=== PATIENT | female | born 1990 | race Caucasian/White ===

== ENCOUNTER 2021-02-04 09:13 | Emergency (ER) | payer OTHER, SELFPAY ==
[2021-02-04 09:29] VITALS: BP 118/89; PULSE 91; RESP 16; TEMP 36.4; O2SAT 100
--- NOTE | 2021-02-04 10:03 | ED.URI ---
HPI - URI/Sore Throat General Chief Complaint: Upper Respiratory Infection Stated Complaint: sinus infection and pink eye Time Seen by Provider: 02/04/21 09:45 Source: patient and RN notes reviewed Mode of arrival: ambulatory Limitations: no limitations History of Present Illness HPI Narrative: Patient presents today with a 4-day history of occasional cough, postnasal drip, rhinorrhea, right ear pressure with decreased hearing, sinus pressure, sneezing, right eye redness and crusting. Patient denies any purulent drainage and does report watery drainage throughout the day. Denies fever or sore throat. Denies shortness of breath. No history of asthma or COPD. She is a non-smoker. She has been taking Mucinex and a decongestant. MD elicited complaint: rhinorrhea and nasal congestion Related Data Home Medications Medication Instructions Recorded Confirmed norgestimate-ethinyl estradiol tablet PO DAILY 02/04/21 [Tri-Sprintec (28)] Allergies Allergy/AdvReac Type Severity Reaction Status Date / Time amoxicillin Allergy hives Verified 02/04/21 09:47 Review of Systems Review of Systems: Narrative: CONSTITUTIONAL: Denies body aches, fever, chills, or sweats. EYES: Denies visual changes. + Right eye redness and crusting ENT: Denies sore throat, or otalgia.+ Rhinorrhea, nasal congestion, sinus pressure, sneezing, postnasal drip, right ear pressure with decreased hearing CARDIOVASCULAR: Denies chest pain, palpitations, or edema. RESPIRATORY: Denies dyspnea. + Occasional cough GASTROINTESTINAL: Denies abdominal pain, nausea, vomiting, or diarrhea. GENITOURINARY: Denies dysuria or hematuria. SKIN: Denies rash, itching, or wounds. MUSCULOSKELETAL: Denies back pain, joint pain, or myalgia. NEUROLOGIC: Denies headache, numbness, tingling, or weakness. PSYCH: Denies depression or anxiety. [facility] Social History Social History (Updated 02/04/21 @ 10:12 by Debora Good, DESKTOP MANAGER, ) Smoking status: Never smoker Comments At time of signature, I have reviewed and agree with nursing past medical, surgical, social and family history unless otherwise noted. Please see nursing chart for further information. There is no relevant family history pertinent to the presenting complaint Exam Narrative: Exam Narrative: GENERAL: Well-appearing, well-nourished, and in no acute distress. HEAD: Normocephalic, atraumatic. EYES: EOMI. No redness or drainage. Conjunctivae normal. ENT: Mucous membranes pink and moist. Nares congested. No rhinorrhea. Bilateral erythematous and edematous nasal turbinates. Left TM normal. Right TM slightly erythematous and mildly bulging with clear fluid. Throat normal. Uvula midline. NECK: Normal AROM. Supple. No lymphadenopathy. CHEST: No respiratory distress. Clear to auscultation. HEART: Regular rate and rhythm. No murmur appreciated. Normal peripheral pulses. EXTREMITIES: Normal range of motion. No edema. SKIN: Warm, dry, no rash. Capillary refill normal. Normal skin turgor. NEURO: No focal deficits. Alert and oriented x3. Gait steady. PSYCH: Normal affect. No signs of depression or anxiety. Course Vital Signs Vital signs: Vital Signs Temperature 97.5 F L 02/04/21 09:29 Pulse Rate 91 02/04/21 09:29 Respiratory Rate 16 02/04/21 09:29 Blood Pressure 118/89 02/04/21 09:29 Pulse Oximetry 100 02/04/21 09:29 Temperature 97.5 F L 02/04/21 09:29 Pulse Rate 91 02/04/21 09:29 Respiratory Rate 16 02/04/21 09:29 Blood Pressure 118/89 02/04/21 09:29 Pulse Oximetry 100 02/04/21 09:29 Reviewed. Pt has been instructed to follow up with her PCP regarding her elevated blood pressure today. MDM - URI/Sore Throat Differential Diagnosis Differential diagnosis: Likely upper respiratory infection, otitis media, sinusitis, viral infection, bronchitis and other (Allergic rhinitis, conjunctivitis) Critical Care Time Critical Care Time Critical Care Time: No Discharge Plan D
== END 2021-02-04 10:12 | disposition home or self-care (01) ==
PROVIDERS: Emergency Provider Nurse Practitioner; PCP Internal Medicine
DX: H10.11 Acute atopic conjunctivitis, right eye (principal); J30.9 Allergic rhinitis, unspecified
CPT/HCPCS: 99213; G0463

== ENCOUNTER 2024-03-11 11:28 | Outpatient (CLI) | payer OTHER, SELFPAY ==
--- NOTE | ~2024-03-11 | XR_ITS ---
Right foot Technique: AP, oblique, and lateral views were obtained. Clinical History: crush injury Findings: There is an acute, oblique, minimally displaced fracture of the third proximal phalanx. Josi nt spaces are preserved without erosive or degenerative change. Soft tissues are unremarkable. Impression: Acute, oblique, minimally displaced fracture of the third proximal phalanx. Reviewed, dictated and finalized at location . Impression: Acute, oblique, minimally displaced fracture of the third proximal phalanx.
== END 2024-03-11 11:29 | disposition home or self-care (01) ==
PROVIDERS: PCP Internal Medicine
DX: S97.81XD Crushing injury of right foot, subsequent encounter (principal); S92.535D Nondisplaced fracture of distal phalanx of left lesser toe(s), subsequent encounter for fracture with routine healing; X58.XXXD Exposure to other specified factors, subsequent encounter
CPT/HCPCS: 73630

== ENCOUNTER 2024-03-29 09:57 | Outpatient (CLI) | payer OTHER, SELFPAY ==
--- NOTE | ~2024-03-29 | XR_ITS ---
Right foot Technique: AP, oblique, and lateral views were obtained. Clinical History: Fracture follow-up COMPARISON: 03/11/2024 Findings: There is been minimal interval healing of oblique fracture of the third proximal phalangeal shaft. Osseous alignment is unchanged. Joint spaces are preserved without erosive or degenerative ch guillermo. Soft tissues are unremarkable. Impression: Minimal interval healing of oblique fracture of the third proximal phalangeal shaft. Reviewed, dictated and finalized at location M. Impression: Minimal interval healing of oblique fracture of the third proximal phalangeal s haft.
== END 2024-03-29 09:58 | disposition home or self-care (01) ==
LOC: ANHIMG 09:59
PROVIDERS: PCP Internal Medicine
DX: S92.535D Nondisplaced fracture of distal phalanx of left lesser toe(s), subsequent encounter for fracture with routine healing (principal); S97.81XD Crushing injury of right foot, subsequent encounter
CPT/HCPCS: 73630